=== PATIENT | female | born 1990 | race Caucasian/White ===

== ENCOUNTER 2017-04-18 11:20 | Emergency (ER) | payer MEDICAID, OTHER ==
[2017-04-18] MEDS ORDERED: Ketorolac 60 MG/2 ML SDV IM ONE (11:40)
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
--- NOTE | 2017-04-18 12:53 | CR ---
Right knee Joint spaces are well preserved. No fracture is seen. There is suggestion of a small joint effusion. Impression: No acute specific findings. Suggestion of small joint effusion
[2017-04-18 19:16] VITALS: BP 124/71
== END 2017-04-18 13:01 | disposition home or self-care (01) ==
LOC: MW.ED 11:20
DX: S83.91XA Sprain of unspecified site of right knee, initial encounter (principal); F17.210 Nicotine dependence, cigarettes, uncomplicated; Z98.890 Other specified postprocedural states; Z88.1 Allergy status to other antibiotic agents; Z88.8 Allergy status to other drugs, medicaments and biological substances; V49.9XXA Car occupant (driver) (passenger) injured in unspecified traffic accident, initial encounter; Y92.410 Unspecified street and highway as the place of occurrence of the external cause
CPT/HCPCS: 73562; 96372; 99283; J1885